=== PATIENT | female | born 1980 | race Caucasian/White ===

== ENCOUNTER 2018-05-31 12:33 | Emergency (ER) | END 2018-05-31 18:38 | disposition home or self-care (01) ==

== ENCOUNTER 2018-06-01 08:19 | Emergency (ER) | END 2018-06-01 10:48 | disposition home or self-care (01) ==

== ENCOUNTER 2018-07-25 09:34 | Emergency (ER) | payer MEDICAID ==
[~2018-07-25] VITALS: Ht 157.5 cm; Wt 79.2 kg
[~2018-07-25 09:34] MED LIST: ACET500C5 PO; CEPH-443 PO; HYDR-4011 PO; ONDA4TAB14 PO
[2018-07-25 09:39] VITALS: Ht 157.5 cm; Wt 79.2 kg
[2018-07-25] MEDS ORDERED: ONDANSETRON 4 MG INJ IV STA (10:08)
[2018-07-25] MEDS ORDERED: SOD CHLORIDE 0.9% 1,000 ML IV STA (10:08)
[2018-07-25] MEDS ORDERED: KETOROLAC 30 MG INJ IV STA (10:08)
[2018-07-25] MEDS ORDERED: HYDR-4011 PO (11:47)
[2018-07-25] MEDS ORDERED: NAPR-985 PO (11:47)
--- NOTE | 2018-07-25 12:42 | ERD ---
ER Documentation Chief Complaint Chief Complaint pelvic pain since am hx:cyst, denies vag bleeding HPI 38-year-old female presenting with pelvic pain. Patient has a history of ovarian cyst. Denies any vaginal bleeding. States that her pain is very severe this morning. Has not taken medications for symptoms. Denies changes in urina tion or bowel movement. DeniesNo fevers. No abdominal pain. Allergies to medications. Surgical history . Social history denies. Medical problems has cholelithiasis and kidney stones. ROS All systems reviewed and are negative except as per history of present illness. Medications Home Meds Active Scripts Naproxen* (Naprosyn*) 500 Mg Tablet, 500 MG PO BID PRN for PAIN AND/OR INFLAMMATION, #30 TAB Prov:ARNOLD HERNANDEZ PA-C 07/25/18 Hydrocodone/Acetaminophen ([place] 5-325 Tablet) 1 Each Tablet, 1 TAB PO Q6H PRN for PAIN, #7 TAB Prov:ARNOLD HERNANDEZ PA-C 07/25/18 Ondansetron (Ondansetron Odt) 4 Mg Tab.rapdis, 4 MG PO Q6H PRN for NAUSEA AND/OR VOMITING, #10 TAB Prov:NIMO JACOBS PA-C 06/01/18 Hydrocodone/Acetaminophen ([place] 5-325 Tablet) 1 Each Tablet, 1 TAB PO Q6H PRN for PAIN, #7 TAB Prov:NIMO JACOBS PA-C 06/01/18 Acetaminophen* (Tylophen*) 500 Mg Capsule, 1 CAP PO Q6H PRN for PAIN AND OR ELEVATED TEMP, #20 CAP Prov:STEPH TAY PA-C 05/31/18 Cephalexin* (Keflex*) 500 Mg Capsule, 500 MG PO QID for 7 Days, CAP Prov:STEPH TAY PA-C 05/31/18 Allergies Allergies: Coded Allergies: No Known Allergy (Unverified , 06/01/18) PMhx/Soc History of Surgery: Yes (C SECTION) Anesthesia Reaction: No Hx Neurological Disorder: No Hx Respiratory Disorders: No Hx Cardiac Disorders: No Hx Psychiatric Problems: No Hx Miscellaneous Medical Probl: Yes (KIDNEY STONE, ovarian cyst) Hx Alcohol Use: No Hx Substance Use: No Hx Tobacco Use: No Smoking Status: Never smoker FmHx Family History: No diabetes, No coronary disease, No other Physical Exam Vitals Vital Signs Date Temp Pulse Resp B/P (MAP) Pulse Ox O2 O2 Flow FiO2 Time Delivery Rate 07/25/18 97.3 87 18 152/80 100 09:39 (104) Physical Exam GENERAL: The patient is well-appearing, well-nourished, in no acute distress HEENT: Atraumatic. Conjunctivae are pink. Pupils equal, round, and reactive to light. There is no scleral icterus. Tympanic membranes clear bilaterally. Oropharynx clear. NECK: C-spine is soft and supple. There is no meningismus. There is no cervical lymphadenopathy. CHEST: Clear to auscultation bilaterally. There are no rales, wheezes or rhonchi. HEART: Regular rate and rhythm. No murmurs, clicks, rubs or gallops. ABDOMEN: Normal active bowel sounds. No distention. No organomegaly. Tender to palpation in the left lower quadrant. Result Diagram: 07/25/18 1019 07/25/18 1020 Results 24 hrs Laboratory Tests Test 07/25/18 10:19 07/25/18 10:20 White Blood Count 6.8 10^3/ul Red Blood Count 4.48 10^6/ul Hemoglobin 12.0 g/dl Hematocrit 37.9 % Mean Corpuscular Volume 84.6 fl Mean Corpuscular Hemoglobin 26.8 pg Mean Corpuscular Hemoglobin Concent 31.7 g/dl Red Cell Distribution Width 14.2 % Platelet Count 396 10^3/UL Mean Platelet Volume 9.9 fl Immature Granulocytes % 0.300 % Neutrophils % 64.6 % Lymphocytes % 28.3 % Monocytes % 5.1 % Eosinophils % 1.0 % Basophils % 0.7 % Nucleated Red Blood Cells % 0.0 /100WBC Immature Granulocytes # 0.020 10^3/ul Neutrophils # 4.4 10^3/ul Lymphocytes # 1.9 10^3/ul Monocytes # 0.4 10^3/ul Eosinophils # 0.1 10^3/ul Basophils # 0.1 10^3/ul Nucleated Red Blood Cells # 0.0 10^3/ul Urine Color STRAW Urine Clarity CLEAR Urine pH 7.0 Urine Specific [place] 1.010 Urine Ketones NEGATIVE mg/dL Urine Nitrite NEGATIVE mg/dL Urine Bilirubin NEGATIVE mg/dL Urine Urobilinogen NEGATIVE mg/dL Urine Leukocyte Esterase NEGATIVE Alicia/ul Urine Microscopic RBC 1 /HPF Urine Microscopic WBC 1 /HPF Urine Squamous Epithelial Cells FEW /HPF Urine Bacteria FEW /HPF Urine Hemoglobin 3+ mg/dL Urine Glucose NEGATIVE mg/dL Urine Total Protein NEGATIVE mg/dl Sodium Level 139 mmol/L Potassium Level 4.3 mmol/L Chloride Level 105 mmol/L Carbon Dioxide Level 26 mmol/L Anion Gap 8 Blood Urea Nitrogen 10 mg/dl Creatinine 0.47 mg/dl Est Glomerular Filtrat Rate mL/min > 60 mL/min Glucose Level 97 mg/dl Calcium Level 9.1 mg/dl Total Bilirubin 0.1 mg/dl Direct Bilirubin 0.00 mg/dl Indirect Bilirubin 0.1 mg/dl Aspartate Amino Transf (AST/SGOT) 16 IU/L Alanine Aminotransferase (ALT/SGPT) 10 IU/L Alkaline Phosphatase 57 IU/L Total Protein 7.5 g/dl Albumin 4.2 g/dl Globulin 3.30 g/dl Albumin/Globulin Ratio 1.27 Lipase 39 U/L POC Beta HCG, Qualitative NEGATIVE Current Medications Medications Dose Sig/Krystin Start Time Status Last (Trade) Ordered Route PRN Stop Time Admin Dose Reason Admin Sodium 1,000 ml @ Q1H STAT 07/25/18 DC 07/25/18 Chloride 1,000 mls/hr IV 10:08 10:38 07/25/18 11:07 Ondansetron 4 mg ONCE STAT 07/25/18 DC 07/25/18 HCl (Zofran IV 10:08 10:38 Inj) 07/25/18 10:09 Ketorolac 30 mg ONCE STAT 07/25/18 DC 07/25/18 Tromethamine IV 10:08 10:38 (Toradol) 07/25/18 10:09 Procedures/MDM DIAGNOSTIC IMAGING REPORT Patient: BYRON SEPULVEDA : 1980 Age: 38 Sex: F MR #: [id number] DOS: 07/25/18 1008 Ordering MD: ANISH HERNANDEZ PA-C Location: [facility] Room/Bed: PROCEDURE: CT abdomen and pelvis without contrast. CLINICAL INDICATION: Left-sided abdominal pain TECHNIQUE: CT scan of the abdomen and pelvis without contrast was performed and is reconstructed at 2.5 mm contiguous axial intervals from the dome of the diaphragm to the inferior pubic rami.. The patient was scanned without intravenous contrast. Sagittal and coronal reformatted images were obtained from the axial source images. The calculated radiation dose measures 682 mGy centimeters. The CTDI measures 13 mGy. Individualized dose optimization technique was used for the performance of this exam. This included 1. Automated exposure control. 2. Adjustment of the mA and / or kV according to the patient's size. 3. Use of iterative reconstructed technique. COMPARISON: None. FINDINGS: The lung bases are clear of any infiltrate or nodule. No effusion is seen. The liver is of normal size, contour and attenuation with no mass or ductal dilatation. There are gallstones. No splenic, adrenal or pancreatic abnormaliti es present. Kidneys are of normal size and contour. No hydronephrosis or masses seen. There is a 7 mm nonobstructing stone in the midpole of the left kidney. Ureters are of normal course and caliber with no stone. No bladder mass or stone is present. Uterus appears normal. There is a 2.5 cm cystic mass of the left adnexa. There is no aneurysm. No adenopathy is present. No bowel mass or obstruction is present. The appendix is normal. No phlegmon, ascites or pneumoperitoneum is visualized. The osseous structures are intact. IMPRESSION: No evidence of obstructive uropathy, diverticulitis or appendicitis. 7 mm nonobstructing left renal calculus. Cholelithiasis. 2.5 cm cystic mass left adnexa likely representing physiologic cyst. This was visualized on the concurrent pelvic ultrasound. DIAGNOSTIC IMAGING REPORT Patient: BYRON SEPULVEDA : 1980 Age: 38 Sex: F MR #: [id number] DOS: 07/25/18 1008 Ordering MD: ANISH HERNANDEZ PA-C Location: [facility] Room/Bed: PROCEDURE: US Pelvis. CLINICAL INDICATION: Vaginal bleeding. TECHNIQUE: Sonographic evaluation of the pelvis was performed utilizing both transabdominal and transvaginal technique.Curved array transabdominal transducer technique as well as a high frequency endovaginal probe was utilized. Images were reviewed on the high-resolution PACS workstation. COMPARISON: US PELVIS 05/31/2018 FINDINGS: The uterus is diffusely heterogeneous in echotexture and measures 8.9 x 4.6 x 6.6 cm. There is a small Nabothian cysts in the cervix. The endometrium is thickened measuring 16 mm. The right ovary measures 7.7 ml in volume. The left ovary measures 40.6 ml in volume. There is a 3.2 cm cyst seen in the left ovary . Ovaries are normal in flow bilaterally.. . No other adnexal masses are identified.. There is no significant free fluid in the pelvis. No other incidental abnormality is identified. IMPRESSION: Mildly heterogeneous uterus without focal fibroid identified. Mildly thickened endometrial echo complex. 3.2 cm left ovarian cyst. ER course: 1L NS given in ED. Zofran and Toradol given in ED MDM: 38 yr old female complaining of left-sided abdominal pain. I have low suspicion for ovarian torsion. I have low suspicion for diverticulitis or perforated intestine. I have low suspicion for abscess formation. I have low suspicion for septic stone. Patient does have ovarian cyst versus nephrolithiasis visualized on CT scan. Patient is discharged with supportive medications. Patient is told symptoms change or worsen to return immediately to the ER. All questions answered at this Departure Diagnosis: Primary Impression: Ovarian cyst Additional Impression: Acute pain in female pelvis Condition: Stable Patient Instructions: Ovarian Cyst Referrals: [facility] YOU HAVE RECEIVED A MEDICAL SCREENING EXAM AND THE RESULTS INDICATE THAT YOU DO NOT HAVE A CONDITION THAT REQUIRES URGENT TREATMENT IN THE EMERGENCY DEPARTMENT. FURTHER EVALUATION AND TREATMENT OF YOUR CONDITION CAN WAIT UNTIL YOU ARE SEEN IN YOUR DOCTORS OFFICE WITHIN THE NEXT 1-2 DAYS. IT IS YOUR RESPONSIBILITY TO MAKE AN APPOINTMENT FOR FOLOW-UP CARE. IF YOU HAVE A PRIMARY DOCTOR --you should call your primary doctor and schedule an appointment IF YOU DO NOT HAVE A PRIMARY DOCTOR YOU CAN CALL OUR PHYSICIAN REFERRAL HOTLINE AT IF YOU CAN NOT AFFORD TO SEE A PHYSICIAN YOU CAN CHOSE FROM THE FOLLOWING [facility] CLINICS [facility] [address] [facility] [address] [facility] [address] [facility] [address] [facility] [address] [place] [address]. [facility]. [address] Additional Instructions: FOLLOW UP WITH YOUR PRIMARY CARE PHYSICIAN TOMORROW.Return to this facility if you are not improving as expected. ARNOLD HERNANDEZ PA-C Jul 25, 2018 12:42
== END 2018-07-25 12:07 | disposition home or self-care (01) ==
LOC: FTE 09:34
DX: N83.202 Unspecified ovarian cyst, left side (principal)
CPT/HCPCS: 36415; 74176; 76830; 76856; 80053; 81001; 81025; 83690; 85025; 96374; 96375; J1885; J2405; J7030; Z7502